=== PATIENT | female | born 1960 | race Caucasian/White ===

== ENCOUNTER 2020-01-29 15:04 | Outpatient (CLI) | payer BC, SELFPAY ==
--- NOTE | ~2020-01-29 | MM_ITS ---
EXAMINATION: MM screening [facility] w [facility] HISTORY: Screening mammogram TECHNIQUE: Craniocaudal and mediolateral oblique 3-D tomosynthesis images were obtained and synthetic 2-D images were generated. CAD analysis was submitted and interpreted. COMPARISON: 10/07/2018, 05/01/2017 bilateral digital screening mammogram examinations from [facility] BREAST PARENCHYMAL COMPOSITION: The breasts are heterogeneously dense, which may obscure small masses . FINDINGS: Approximately 5 mm circumscribed mass is suggested posteriorly in the lower outer left [address]paro st (MLO Tomosynthesis image /39). Diagnostic left mammogram is recommended, with ultrasound if requi red. Otherwise there is no evidence of suspicious mass, calcification, or architectural distortion to sug gest malignancy in either breast. There has been no suspicious interval change. IMPRESSION: 1. Possible 5 mm mass posteriorly in the lower outer left breast 2. Diagnostic left mammogram is recommended, with ultrasound if required BI-RADS Category 0: Incomplete: Needs additional imaging evaluation. Reviewed, dictated and finalized at location A.
== END 2020-01-29 15:05 | disposition home or self-care (01) ==
PROVIDERS: PCP Family Medicine; Visit Provider Family Medicine
DX: Z12.31 Encounter for screening mammogram for malignant neoplasm of breast (principal); R92.8 Other abnormal and inconclusive findings on diagnostic imaging of breast
CPT/HCPCS: 77063; 77067

== ENCOUNTER 2020-02-23 12:19 | Outpatient (CLI) | payer BC, SELFPAY ==
--- NOTE | ~2020-02-23 | MMUS_ITS ---
EXAMINATION: MM diagnostic mammo unilat LT, US breast LT limited HISTORY: Possible 5 mm mass posteriorly in the lower outer left breast on 01/29/2020 screening mammogr am TECHNIQUE: Additional 3-D tomosynthesis images of the left breast were performed and synthetic 2-D im ages were generated. CAD analysis was submitted and interpreted. High resolution limited left breast ultrasound was performed at lower outer quadrant and at 7:00. COMPARISON: 01/29/2020 bilateral digital screening mammogram 02/27/2018 left breast ultrasound FINDINGS: MAMMOGRAPHIC FINDINGS: There is a circumscribed 5 mm opacity in the outer mid left breast, having benign mammographic appear ance. ULTRASOUND: There is a lobular multi-locular cyst at 3:00 2 cm from the nipple, benign, stable since 02/27/2018 IMPRESSION: 1. Benign multilocular 5 mm cyst at 3:00 2. Routine mammographic screening is recommended. BI-RADS Category 2: Benign finding(s). Reviewed, dictated and finalized at location A. IMPRESSION: 1. Benign multilocular 5 mm cyst at 3:00 2. Routine mammographic screening is recommended. BI-RADS Category 2: Benign finding(s).
== END 2020-02-23 12:20 | disposition home or self-care (01) ==
LOC: ANHIMG 12:21
PROVIDERS: PCP Family Medicine; Visit Provider Family Medicine
DX: N60.02 Solitary cyst of left breast (principal)
CPT/HCPCS: 76642; 77065

== ENCOUNTER 2021-05-25 08:03 | Outpatient (CLI) | payer BC, SELFPAY ==
--- NOTE | ~2021-05-25 | MM_ITS ---
EXAMINATION: MM screening [facility] BI w [facility] HISTORY: Screening mammogram TECHNIQUE: Craniocaudal and mediolateral oblique 3-D tomosynthesis images were obtained and synthetic 2-D images were generated. CAD analysis was submitted and interpreted. COMPARISON: 02/23/2020 left diagnostic mammogram and limited left breast ultrasound 01/29/2020, 10/07/2018, 05/01/2017 bilateral screening mammogram examinations BREAST PARENCHYMAL COMPOSITION: The breasts are heterogeneously dense, which may obscure small masses . FINDINGS: There is a circumscribed 6 mm mass in the lower outer left breast at mid depth, stable sinc e 10/07/2018. There Is no evidence of suspicious mass, calcification, or architectural distortion to suggest malign isidro in either breast. There has been no suspicious interval change. IMPRESSION: 1. No mammographic evidence of malignancy. 2. Recommend routine screening mammography in one year. BI-RADS Category 2: Benign finding(s). Reviewed, dictated and finalized at location A. 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
== END 2021-05-25 08:04 | disposition home or self-care (01) ==
LOC: ANHIMG 08:05
PROVIDERS: PCP Family Medicine; Visit Provider Family Medicine
DX: Z12.31 Encounter for screening mammogram for malignant neoplasm of breast (principal)
CPT/HCPCS: 77063; 77067

== ENCOUNTER 2021-10-07 01:08 | Day surgery (SDC) | payer BC, SELFPAY ==
[2021-09-27 15:29] VITALS: BMI 24.0
[2021-10-07 12:01] VITALS: BP 110/61; PULSE 97; RESP 17; TEMP 36.1; O2SAT 99
[2021-10-07] MEDS: LACTATED RINGERS 1,000 ML 150 ML IV CONT (12:10)
--- NOTE | 2021-10-07 12:32 | P.PNAN_ITS ---
Anes - Initial Pre Proc Eval Procedure: Operation Date: 10/07/21 13:00 Proposed Procedures p Screening Colonoscopy - Damien Ritchie MD Date/Time: 10/07/21 12:32 Surgeon: Damien Ritchie MD Pre Op Diagnosis: neoplasm screening Patient Data Age: 60 Gender: F Height: 1.63 m Weight: 64.5 kg Last Vital Signs Temp 36.1 C L 10/07/21 12:01 Pulse 97 10/07/21 12:01 Resp 17 10/07/21 12:01 BP 110/61 10/07/21 12:01 Pulse Ox 99 10/07/21 12:01 Allergies Allergy/AdvReac Type Severity Reaction Status Date / Time mold Allergy Mild congested Verified 10/07/21 11:58 nickel Allergy Mild red spots Verified 10/07/21 11:58 Home Medications Medication Instructions Recorded Confirmed Type loratadine 10 mg tablet 10 mg PO DAILY 08/22/19 10/07/21 History cholecalciferol (vitamin D3) 50 50 mcg PO DAILY #30 tablet 07/16/20 10/07/21 Rx mcg (2,000 unit) tablet sumatriptan succinate 50 mg tablet See Rx Instructions PO .COMPLEX 06/28/21 10/07/21 Rx #12 tablet estradiol 1.5 g VAGINAL 2XW #42.5 g 09/30/21 10/07/21 Rx Patient hx anesthesia problems: none Family hx anesthesia problems: none Results Review: All pre-operative results and documents have been reviewed as part of the pre-operative evaluation. [facility] Past Medical History Medical History Chronic migraine Screen for colon cancer Family History Family History Sibling Family history of arthritis Father Family history of malignant neoplasm, Onset Age: 66 Social History Social History Social History: Smoking status: Never smoker Second hand tobacco smoke exposure: No Alcohol intake: current Alcohol use details: rarely Substance use: never Substance use type: does not use Living arrangements: with family Gender identity (if verbalized by the patient): Female Sexual Orientation (if Verbalized by the Patient): Straight or Heterosexual Spiritual care concerns: No Anes - Eval Final PreProcedure Day of Procedure 10/07/21 12:32 Patient weight: normal Heart: regular rate and rhythm Lungs: clear to auscultation Airway: Mallampati scale class II Neurological: alert and oriented Last oral intake: >/= 8 hours ASA classification: II Emergent: no Anesthetic plan: proceed Anesthesia type and monitoring: general GIVS and standard monitoring Results Review: All pre-operative results and documents have been reviewed as part of the pre-operative evaluation. Informed Consent: The patient's anesthetic plan and its attendant risks and benefits were discussed with the patient/family/POA. Questions were solicited and answers provided to the satisfaction of the patient/family/POA.
--- NOTE | 2021-10-07 12:43 | PM.HPGS ---
History of Present Illness History of Present Illness Consent: Risks, benefits, and alternatives have been discussed and questions answered. Patient agrees to proceed with procedure. Chief complaint: neoplasm screening Narrative: Megan Ly is a 60 year old female with history of colon polyps getting her colonoscopies every 3 years because of the same. Review of Systems Constitutional: Constitutional: Denies headache(s) and Denies weakness Eyes: Eyes: Denies blurry vision ENT: Reports Normal hearing present, Denies headache(s) and Denies neck pain Cardiovascular: Cardiovascular: Denies chest pain and Denies dyspnea Respiratory: Respiratory: Denies dyspnea Gastrointestinal: Gastrointestinal: Reports no additional gastrointestinal complaints Genitourinary: Genitourinary: Denies dysuria Musculoskeletal: Musculoskeletal: Denies neck pain Integumentary/Breasts: Skin/Breast: Denies dry skin Neurologic: Reports Normal hearing present, Denies headache(s) and Denies weakness Psychiatric: Psychiatric: Denies anxiety Endocrine: Endocrine: Denies change in body appearance Hematologic/Lymphatic: Hematologic/Lymphatic: Denies easy bleeding Allergic/Immunologic: Allergic/Immunologic: Denies urticaria PMF Past Medical History Medical History (Updated 10/07/21 @ 12:43 by Damien Ritchie MD) Chronic migraine Colon polyp Screen for colon cancer Family History Family History Sibling Family history of arthritis Father Family history of malignant neoplasm, Onset Age: 66 Social History Social History Social History: Smoking status: Never smoker Second hand tobacco smoke exposure: No Alcohol intake: current Alcohol use details: rarely Substance use: never Substance use type: does not use Living arrangements: with family Gender identity (if verbalized by the patient): Female Sexual Orientation (if Verbalized by the Patient): Straight or Heterosexual Spiritual care concerns: No Meds Home Medications and Allergies Home Medications Medication Instructions Recorded Confirmed Type loratadine 10 mg tablet 10 mg PO DAILY 08/22/19 10/07/21 History cholecalciferol (vitamin D3) 50 50 mcg PO DAILY #30 tablet 07/16/20 10/07/21 Rx mcg (2,000 unit) tablet sumatriptan succinate 50 mg tablet See Rx Instructions PO .COMPLEX 06/28/21 10/07/21 Rx #12 tablet estradiol 1.5 g VAGINAL 2XW #42.5 g 09/30/21 10/07/21 Rx Allergies Allergy/AdvReac Type Severity Reaction Status Date / Time mold Allergy Mild congested Verified 10/07/21 11:58 nickel Allergy Mild red spots Verified 10/07/21 11:58 Vital Signs Vital Signs - 24 hr 10/07/21 12:01 Temperature 97.0 F L Pulse Rate 97 Respiratory Rate 17 Blood Pressure 110/61 Pulse Oximetry 99 Exam Const: General: comfortable and no acute distress HENMT: General nose exam: Normal nares present Eyes: General: appearance normal, both eyes and all related structures Neck: Neck: no JVD Resp: Auscultation: clear to auscultation bilaterally Cardio: Rate: regular rate Rhythm: regular rhythm GI: Inspection: non-distended GI Palp: Yes Soft to palpation Skin: General skin exam: normal color Neuro: General: gait normal Speech: normal speech Extrem: General: normal to inspection Psych: Mental Status: mental status grossly normal Assessment and Plan Assessment and plan (1) Colon polyp: Code(s): K63.5 - Polyp of colon Status: Acute Assessment and Plan: colonoscopy
[2021-10-07 13:06] VITALS: BP 110/74; PULSE 78; RESP 19; O2SAT 96
[2021-10-07 13:16] VITALS: BP 102/77; PULSE 72; RESP 16; O2SAT 100
[2021-10-07 13:26] VITALS: BP 123/79; PULSE 63; RESP 18; O2SAT 100
== END 2021-10-07 13:44 | disposition home or self-care (01) ==
PROVIDERS: PCP Family Medicine; Visit Provider Internal Medicine Gastroenterology
PROC: 0DJD8ZZ Inspection of Lower Intestinal Tract, Via Natural or Artificial Opening Endoscopic (ICD-10-PCS; CPT 45378; principal; 2021-10-07 13:00)
DX: Z12.11 Encounter for screening for malignant neoplasm of colon (principal); K57.30 Diverticulosis of large intestine without perforation or abscess without bleeding; K64.8 Other hemorrhoids; Z86.010 Personal history of colon polyps
CPT/HCPCS: 45378; J2704; J7120

== ENCOUNTER 2022-07-06 15:09 | Outpatient (CLI) | payer BC, SELFPAY ==
--- NOTE | ~2022-07-06 | MM_ITS ---
EXAMINATION: MM screening [facility] BI w [facility] HISTORY: Screening mammogram TECHNIQUE: Craniocaudal and mediolateral oblique 3-D tomosynthesis images were obtained and synthetic 2-D images were generated. CAD analysis was submitted and interpreted. COMPARISON: 05/25/2021, 02/23/2020, 01/29/2020 BREAST PARENCHYMAL COMPOSITION: The breasts are heterogeneously dense, which may obscure small masses . FINDINGS: A stable mass in the outer left breast is consistent with a benign finding given the lack o f interval change. No suspicious mass, calcification, or architectural distortion are identified in e ither breast to suggest malignancy. There has been no suspicious interval change. IMPRESSION: 1. No mammographic evidence of malignancy. 2. Recommend routine screening mammography in one year. BI-RADS Category 2: Benign finding(s). Reviewed, dictated and finalized at location A. 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
== END 2022-07-06 15:10 | disposition home or self-care (01) ==
LOC: ANHIMG 15:10
PROVIDERS: PCP Family Medicine; Visit Provider Family Medicine
DX: Z12.31 Encounter for screening mammogram for malignant neoplasm of breast (principal)
CPT/HCPCS: 77063; 77067

== ENCOUNTER 2023-12-06 09:29 | Outpatient (CLI) | payer BC, SELFPAY ==
--- NOTE | ~2023-12-06 | MM_ITS ---
EXAMINATION: MM screening [facility] BI w [facility] HISTORY: Screening mammogram TECHNIQUE: Craniocaudal and mediolateral oblique 3-D tomosynthesis images were obtained and synthetic 2-D images were generated. CAD analysis was submitted and interpreted. COMPARISON: 07/06/2022, 05/25/2021, 02/23/2020 BREAST PARENCHYMAL COMPOSITION:Dense: The breasts are heterogeneously dense, which may obscure small masses. FINDINGS: Stable left breast mass. No suspicious mass, calcification, or architectural distortion are identified in either breast to suggest malignancy. There has been no suspicious interval change. IMPRESSION: No mammographic evidence of malignancy. Recommend routine screening mammography in one year. BI-RADS Category 2: Benign finding(s). Reviewed, dictated and finalized at location .
== END 2023-12-06 09:30 | disposition home or self-care (01) ==
LOC: ANHIMG 09:31
PROVIDERS: PCP Family Medicine; Visit Provider Family Medicine
DX: Z12.31 Encounter for screening mammogram for malignant neoplasm of breast (principal)
CPT/HCPCS: 77063; 77067